=== PATIENT | male | born 1995 | race Caucasian/White ===

== ENCOUNTER 2017-11-11 05:55 | Emergency (ER) | payer OTHER ==
[~2017-11-11] VITALS: Ht 185.4 cm; Wt 107.5 kg
[~2017-11-11 05:55] MED LIST: OMEPRAZOLE20 M1 PO; OMEPRAZOLE20 MG PO; PHENERGAN50 MG PR; REGLAN10 MG PO; ZOFRAN ODT4 MG PO
== END 2017-11-11 08:35 | disposition home or self-care (01) ==
LOC: ED 05:55
DX: G43.A0 Cyclical vomiting, in migraine, not intractable (principal)
CPT/HCPCS: 80053; 83690; 85025; 96361; 96374; 96375; 99284; J1200; J1630; J2405; J2765; J7030